=== PATIENT | female | born 2000 | race African-American/Black ===

== ENCOUNTER 2024-04-24 14:01 | Outpatient (REF) | payer SELFPAY ==
--- OUTSIDE RECORDS SUMMARY | 2024-04-24 14:23 | XMS_ITS | Clinical Summary ---
Author Organization [facility] ity Address [address] [place] [address] Care Team Providers Care Solid Waste Landfill Technician Name Role Phone Unavailable Primary Care Provider Unavailabl e Social History Tobacco Use Types Packs/Day Years Used Date Smoking Tobacco: Never Assessed Sex and Gender Information Value Date Recorded Sex Assigned at Not on file Gender Identity Not on file Sexual Orientation Not on file Plan of Treatment Health Maintenance Due Date Last Done Comments Gonorrhea/Chlamydia Screening 2002 HPV Vaccines (1 - 3-dose series) 2017 DTaP,Tdap,and Td Vaccines (1 - Tdap) 2021 Hepatitis B Vaccines (1 of 3 - 19+ 3-dose series) 2021 Annual Well Child Visit (3-2 1 years old) 02/14/2022 Depression Screening 02/14/2022 HIV Screening 02/14/2022 Hepatitis C Screening 02/14/2022 Social Influencers of Health Screening 02/14/2022 Cervical Cancer Screening: P ap Smear 2023 COVID-19 Vaccine (1 - 2023-2 5 season) 2023 Influenza Vaccine (#1) 2023 HIB Vaccines Aged Out No longer eligi ble based on patient's age to complete this topic Hepatitis A Vaccines Aged Out No long er eligible based on patient's age to complete this topic IPV Vaccines Aged Out No longer eligi ble based on patient's age to complete this topic MMR Vaccines Aged Out No longer eligi ble based on patient's age to complete this topic Meningococcal ACWY Vaccine Aged Out N o longer eligible based on patient's age to complete this topic Pneumococcal Vaccine: Pediat rics (0 to 5 Years) and At-Risk Patients (6 to 64 Years) Aged Out No longer eligible b ased on patient's age to complete this topic RSV Immunization Patients Un eulalio 20 months Aged Out No longer eligible b ased on patient's age to complete this topic Varicella Vaccines Aged Out No longer eligible based on patient's age to complete this topic
--- OUTSIDE RECORDS SUMMARY | 2024-04-24 14:23 | XMS_ITS | Continuity of Care Document ---
Author Organization [facility] Address [address] [place] [phone] Phone Care Team Providers Care Hospital Liaison Name Role Phone Walker FERTILIZER APPLICATOR, Natalie Unavailable Unavailable Allergies, Adverse Reactions, Alerts Substance Reaction Status Criticality No Known Allergies Active No Inform ation Problems Condition Type Effective Dates (start - stop) Clini carlos Status Comments No Known Problems Procedures Procedure Date PURE TONE HEARING TEST, AIR WELL EXAM MEDICAL PRACTICE ADMINISTRATOR L4 (17) Brief Emotional Behavioral Assessment Ap HEALTH RISK ASSESSMENT TEST PURE TONE URINALYSIS DIP Results Test Name Date and Time Measure Units Reference Range Abnormal Flag Status Commen ts Panel Description: UA DIP INHOUSE Final pH 6.0 Final SG 1.015 Final glucose negative Final protein negative Final bili negative Final urobili negative Final leuc negative Final nitrite negative Final blood negative Final Advance Directives Directive Yes / No Effective Date File Name No Information Encounters Encounter Description Practice Location Reason(s) For Visit Diagnoses Date Provider Providers Copied on Encounter WELL EXAM MEDICAL PRACTICE ADMINISTRATOR L4 (17[place] [facility] [place] [address] [place] [address], [address], tel:[phone] [employer] Well Child (chief complaint) Sports Physical (chief complaint) CRAFFT <1 min negative (chief complaint) PHQ 2 >1 min positive (chief complaint) Encntr for routine child health exam w/o abnormal findingsEncounter for exam of ears and hearing w/o abnormal findingsBMI pediatric, greater than or equal to 95% for ageEncounter for screening for other disorderEncounter for examination for participation in sportEncounter for examination of eyes and vision with abnormal findingsIrritabili ty and angerWorries Apr-2 8201 7 Pako Natalie. [address] [address], [id number] [address], [place], [place], [id number] , . tel:[phone] Referring Provider: Natalie Min, [address] [facility] [id number] [address], [place], [address] . tel:[phone] Family History Family Member Type Diagnosis Age At Onset No Information Immunizations Vaccine Date Status Comments varicella virus vaccine administered Sour ce: Other Registry measles, mumps and rubella v irus vaccine administered Source: Other Regist ry Hep A (ped/adol, 2 dose) administered Lucy rce: Other Registry poliovirus vaccine, inactivated administe red Source: Other Registry diphtheria, tetanus toxoids and acellular pertussis vaccine administered Source: Othe r Registry MMR administered Source: Other R egistry diphtheria, tetanus toxoids and acellular pertussis vaccine administered Source: [place] r Registry pneumococcal conjugate vacci ne, 13 valent administered Source: Other Regist ry hepatitis B vaccine, pediatr ic or pediatric/adolescent dosage administered Source: [place] r Registry Varicella administered Source: Other R egistry Hib (HbOC) administered Source: Other R egistry poliovirus vaccine, inactivated administe red Source: Other Registry diphtheria, tetanus toxoids and acellular pertussis vaccine administered Source: [place] r Registry pneumococcal conjugate vacci ne, 13 valent administered Source: Other Regist ry hepatitis B vaccine, pediatr ic or pediatric/adolescent dosage administered Source: [place] r Registry poliovirus vaccine, inactivated administe red Source: Other Registry diphtheria, tetanus toxoids and acellular pertussis vaccine administered Source: [place] r Registry pneumococcal conjugate vacci ne, 13 valent administered Source: Other Regist ry Hib (HbOC) administered Source: Other R egistry Hep B (ped/adol, 3 dose) administered Lucy rce: Other Registry Polio, Inactive administered Source: [place] r Registry DTaP (younger than 7 yrs) administered So urce: Other Registry Pneumococcal, PCV-13 administered Source: Other Registry Hib (HbOC) administered Source: Other R egistry Payers Payer name Insurance type Covered republican ID Authoriza tion(s) No Information Social History Type Description Quantity Date Captured Comments Alcohol Use Details Unknown Caffeine Use Details Unknown Tobacco Use Status Current non-smoker 17 Smoking Status Never smoker Non-Smoking Tobacco Use Details : No Details Available : No Details Available Sex Female Gender Identity Female Vital Signs Date / Time: Height Weight BMI Pulse Rate Blood Pressure Temperature Respiratory Rate Body Surface Area Head Circumference Head Circ. Percentile Wt./Rajiv. Percentile BMI percentile Pulse Ox Inhaled Ox 1:45 PM 61.00 in 77.746 kg (171.40 lbs) 32.3 9 kg/m eter (2) 74 /min 104/64 mm[Hg] 98.10 F 17 /min 98 99 % Chief Complaint And Reason For Visit From encounter dated '07/13/2016 13:42'. Well Child (chief complaint) Sports Physical (chief complaint) CRAFFT <1 min negative (chief complaint) PHQ 2 >1 min positive (chief complaint) Reason For Referral Reason For Referral No Information Plan Of Treatment Date Type Action Status Goal Tdap due Goal *Pneumo 13 (PCV13) due Goal Influenza vaccine. Due on Ap due Goal Alcohol/chemical dependency screening. Due on due Goal Vision screen . Due on due Goal Subst Abse Screen (2 [facility]) due Goal Hearing screen. Due on due Goal Folate or Fam Plan. Due on A due Goal Lifestyle education mieshain fernando diet completed History Of Present Illness Encounter Date Complaint History Of Prese nt Illness Sports Physical Well Child (comments) Patient is present today for a well child and sports physical. She will be playing softball. She has played before and is currently playing. Denies history of chest pain, or palpitations while running/exercising. She has had some shortness of breath when running due to my weight . States it only happens when she runs a long distance or over excerts self. States never happens in a normal game of softball. Denies concussion.She attends [employer] and is in the 8th grade. She will be at the highschool next year. She likes school. She is making A's, B's, and C's. She is making 1 C and is working on making it a B. She lives with father and step mom. She lives with little sister and older sister and step brother. Her cousin is living with them temporarily. Cousin smokes in house/car. She denies being on any meds or having any medical problems at this time.PHQ= positiveShe says that sometimes she feels depressed, but most of it is anger. She says that she used to be bad and her dad does not believe that she is trying to change into a better person. She says that she is sorry for all the things she has done and wants to be better. PHQ 2 >1 min positive CRAFFT <1 min negative Well Child Functional Status Date Functional Assessmen t Pain Score 0/10 Instructions Date Instruction Additional Infor jose Siobhan is doing wel l today.She is cleared to play sports. She failed her vision, but passed hearing. She needs to be seen by an eye doctor- please schedule an appointment at your earliest convenience. She was 20/40 in one eye, 20/30 in opposite eye, together both eyes are 20/30. They should be 20/20 or better. She is having some issues with feeling down and depressed. She may benefit from seeing a counselor if you are able to arrange that. Recommendation to take daily multivitamin. Recommendation to brush teeth twice daily. Your child needs to see a dentist every 6 months for regular dental cleanings. Encourage activity for at least 1 hour a day. Limit TV and chris to less than 2 hours per day. Your child needs to get appropriate rest. Encourage a diet rich in fresh fruits and vegetables, lean meats and nuts. Drink plenty of water. Avoid soda, and limit salty or sugary snacks.Always wear a seat belt while in the car and a helmet on the bike or 4-messer. Be mindful of the sun and apply sunscreen appropriately every 30 minutes - 1 hour. Recommend insect repellent (bug spray) for any potential exposure to mosquitoes. If outside for a prolonged period of time, always remember to check for ticks.Follow-up as needed. Related to Encntr for routine child health exam w/o abnormal findings Age appropriate anti cipatory guidance discussed (11-14 years) Related to Encntr for routine child health exam w/o abnormal findings Age appropriate diet discussed (11-14 years) Related to Encntr for routine child health exam w/o abnormal findings Age appropriate safe ty discussed (11-14 years) Related to Encntr for routine child health exam w/o abnormal findings Oral Health Discussed (-14 yea rs) Related to Encntr for routine child health exam w/o abnormal findings Giving encouragement to exercise Related to Body mass index (BMI) pediatric, greater than or equal to 95th percentile for age Lifestyle education regarding di et Related to Body mass index (BMI) pediatric, greater than or equal to 95th percentile for age Assessments Type Assessment Date assessment Encntr for routine child health exam w/o abnormal findings assessment Encounter for exam of ears and h earing w/o abnormal findings assessment BMI pediatric, greater than or e qual to 95% for age assessment Encounter for screening for othe r disorder assessment Encounter for examination for pa rticipation in sport assessment Encounter for examin ation of eyes and vision with abnormal findings assessment Irritability and anger 17 assessment Worries Mental Status Date Cognitive Assessment Orientation - Happy Jack ed to time, place, person, situation. Patient Care Teams Name Effective Dates (start - stop) Status Members No Information
[2024-04-24 16:39] LABS: Hematocrit 42.1 % (37.0-47.0); Hemoglobin 14.2 g/dl (12.0-16.0); Mean Corpuscular HGB Conc 33.7 g/dl (31.0-35.0); Mean Corpuscular Volume 86.1 fL (80.0-98.0); Mean Platelet Volume 9.8 fL (9.4-12.3); Platelet Count 306 X10*3/uL (160-400); Red Blood Count 4.89 X10*6/uL (4.20-5.50); Red Cell Distribution Width 12.5 % (11.0-16.0); White Blood Count 11.1 X10*3/uL (4.8-10.8)
[2024-04-24 16:57] LABS: Alanine Aminotransferase 26 U/L (0-31); Albumin Level 4.2 g/dL (3.5-5.0); Alkaline Phosphatase 60 U/L (39-117); Anion Gap 14 (12-20); Aspartate Amino Transferase 27 U/L (5-31); Bilirubin Direct 0.1 mg/dL (0.0-0.5); Bilirubin Total 0.3 mg/dL (0.0-1.0); Blood Urea Nitrogen 9 mg/dL (9-16); Calcium 9.6 mg/dL (8.4-10.2); Carbon Dioxide 25 mmol/L (22-29); Chloride 105 mmol/L (96-108); Cholesterol 205 mg/dL (<200); Estimated Glomerular Filt Rate > 60; Glucose Random 71 mg/dL (60-115); HDL Cholesterol 35 mg/dL (>40); LDL Cholesterol Calculated 142 mg/dL (<100); Potassium 3.8 mmol/L (3.3-5.1); Sodium 140 mmol/L (135-145); Total Protein 7.7 g/dL (6.5-8.0); Triglycerides 143 mg/dL (<150)
[2024-04-24 16:59] LABS: Estimated Average Glucose 97 mg/dL; Hemoglobin A1C 113.1078 umol/L; Total Hemoglobin (HGBA1C) 3653.2452 umol/L
[2024-04-24 17:14] LABS: Free T4 (Free Thyroxine) 1.11 ng/dL (0.71-1.85); Thyroid Stimulating Hormone 4.23 uIU/mL (0.32-4.0)
[2024-04-24 18:31] LABS: CT PCR NOT DETECTED (Not Detect.); NG PCR NOT DETECTED (Not Detect.)
[2024-04-25 08:31] LABS: HBS Num1 19.87 mIU/mL (0-7.99); HBc Num1 0.15 S/CO (0.00-0.79); HBsAGNum1 0.41 S/CO (0.00-0.99); HIV AB/AG Nonreactive (Nonreactive); HIV Num 1 0.06 S/CO (0.00-0.99); Hepatitis B Core Antibody Nonreactive (Nonreactive); Hepatitis B Surface Antigen Negative (Negative); ~HepC Num1 0.12 S/CO (0.00-0.79); ~Hepatitis B Surface Antibody REACTIVE (Nonreactive); ~Hepatitis C Antibody Nonreactive (Nonreactive)
[2024-04-25 08:39] LABS: Hepatitis A Antibody IgG REACTIVE (Nonreactive); ~Hepatitis A Antibody IgG 9.77 S/CO (0.00-0.99)
[2024-04-25 13:23] LABS: RPR Rapid Plasma Reagin NON-REACTIVE (NON-REACTIVE)
== END 2024-04-24 14:02 | disposition home or self-care (01) ==
LOC: HO.HHCL 14:01
PROVIDERS: Visit Provider Family Medicine
DX: R53.83 Other fatigue (principal); Z11.59 Encounter for screening for other viral diseases
CPT/HCPCS: 80048; 80061; 80076; 82306; 83036; 84439; 84443; 85027; 86592; 86704; 86706; 86708; 86803; 87340; 87389; 87491; 87591

== ENCOUNTER → 2024-05-05 08:45 | Outpatient (BNV) | payer OTHER, SELFPAY | PROVIDERS: PCP Family Medicine; Visit Provider Internal Medicine | DX: N63.31 Unspecified lump in axillary tail of the right breast (principal) | CPT/HCPCS: 76642 ==

== ENCOUNTER 2024-05-05 08:51 | Outpatient (REF) | payer OTHER, SELFPAY ==
--- NOTE | ~2024-05-05 | US_ITS ---
EXAMINATION: US DIAGNOSTIC ULTRASOUND BREAST, RIGHT CLINICAL INFORMATION: Right axillary palpable lump and painful.. COMPARISON: Comparison is made with relevant prior imaging. TECHNIQUE: Ultrasound of the breast is performed with real-time gage scale imaging and color Doppler. FINDINGS: Targeted color Doppler ultrasound scanning in the right axilla demonstrates a normal-appearing axillary lymph node. There is no other sonographic finding or abnormality. Results are discussed with the patient at time of visit. US/US breast RT limited mamm only IMPRESSION: Normal axillary lymph node. Recommend clinical evaluation and follow-up for painful lump palpable area. If symptoms change recommend clinical evaluation and a diagnostic workup can be ordered and performed to evaluate. ASSESSMENT: BI-RADS 1: Negative RECOMMENDATION: 1. Patient should be managed based on the clinical impression. Decision to proceed with biopsy should be based on clinical grounds and degree of clinical concern. 2. Otherwise, routine annual screening mammography at age 42. This patient's information was entered into a reminder system with a target due date for their next mammogram. Electronically signed by: Farzana Swartz DO 05/05/2024 10:07 AM KRISTINA
--- OUTSIDE RECORDS SUMMARY | 2024-05-05 09:18 | XMS_ITS | Encounter Summary ---
Author Organization [employer] Address [address] [facility] 7 [place] [address] Care Team Providers Care General Farmworker Name Role Phone Sonia Cornell MD Primary Care Provider [phone] Reason for Visit * Reason Onset Date Comments r/s derm appt 06/18/2022 Encounter Details Date Type Department Care Team ([facility] st Contact Info) Description 06/18/[address] [facility] MEDICINE [address] [place] [address] Sonia Cornell MD [address] [place] [address] r/s derm appt Social History Tobacco Use Types Packs/Day Years Used Date Smoking Tobacco: Never Passive Smoke Exposure: Never Smokeless Tobacco: Current Comments:Everyday Alcohol Use Standard Drinks/Week Comments Never 0 (1 standard drink = 0.6 oz pur e alcohol) Housing Stability Answer Date Recorded What is your housing situation today? I have nadine herman 01/21/[address] you li ve. Do you have problems with any of the following? None of the above 01/21/2023 Food Insecurity Answer Date Recorded Within the past 12 months, y ou worried that your food would run out before you got money to buy more: Never True 01/21/2023 Within the past 12 months,th e food you bought just didn't last and you didn't have enough money to get more: Never True 08/2022 Transportation Answer Date Recorded In the past 12 months, has l ack of transportation kept you from medical appts, meetings, work or from getting things needed for daily living? Yes, it has kept me from medical appointments or getting medications. 12/23/2022 Utilities Answer Date Recorded In the past 12 months, has t he electric, gas, oil or water company threatened to shut off services in your home? No 01/21/2023 Depression Answer Date Recorded Patient Health Questionnaire-2 Score 0 04/20/2022 Comments Unknown Sex and Gender Information Value Date Recorded Sex Assigned at Female 01/15/2022 10:39 AM EDT Legal Sex Female 10:39 AM EDT Gender Identity Female 01/15/2022 10:39 AM EDT Sexual Orientation Bisexual 01/15/2022 10 :39 AM EDT documented as of this encounter Miscellaneous Notes * Telephone Encounter - Justindiamond Yash - 06/18/2022 12:34 PM EDT Tc from pt requesting to r/s derm new appt scheduled for 06/18/22 @ 2pm with Dr. Cruz, appt has been cancelled. Please contact at [phone] documented in this encounter Plan of Treatment Upcoming Encounters Date Type Department Care Team (Late st Contact Info) Description 05/11/2024 3:30 PM EST Office Visit [facility] MEDICINE [address] [place] [address] Sonia Cornell MD [address] [place] [address] documented as of this encounter Visit Diagnoses Not on filedocumented in this encounter Care Teams General Farmworker Relationship Specialty Start Date End Date Sonia Cornell MD [address] [place] [address] PCP - General Family Medicine 11/07/21 documented as of this encounter
--- OUTSIDE RECORDS SUMMARY | 2024-05-05 09:18 | XMS_ITS | Continuity of Care Document ---
Author Organization [facility] Address [address] [place] [address] Phone Care Team Providers Care Indian Nanny Name Role Phone Walker CROP QUANTITATIVE GENETICIST, Natalie Unavailable Unavailable Allergies, Adverse Reactions, Alerts Substance Reaction Status Criticality No Known Allergies Active No Inform ation Problems Condition Type Effective Dates (start - stop) Clini carlos Status Comments No Known Problems Procedures Procedure Date PURE TONE HEARING TEST, AIR WELL EXAM SENIOR RESEARCH PROJECT MANAGER L4 (17) Brief Emotional Behavioral Assessment Ap [...] Provider Providers Copied on Encounter WELL EXAM SENIOR RESEARCH PROJECT MANAGER L4 (17) [facility], [address] [place] [address], [address], tel:[phone] [employer] Well Child (chief complaint) Sports Physical [...] angerWorries Apr-2 8201 7 Pako Natalie. [address] [address], [id number] [address], [place], [place], [id number] , . tel:[phone] Referring Provider: Natalie Min, [address] [facility] [id number] [address], [place], [address] . tel:[phone] Family History Family Member Type Diagnosis Age [...] egistry Payers Payer name Insurance type Covered green party ID Authoriza tion(s) No Information Social History [...] Date Complaint History Of Prese nt Illness Well Child CRAFFT <1 min negative PHQ 2 >1 min positive Well Child (comments) Patient is present today [...] normal game of softball. Denies concussion.She attends [employer] and is in the 8th grade. [...] has done and wants to be better. Sports Physical Functional Status Date Functional Assessmen t Pain [...] Mental Status Date Cognitive Assessment Orientation - Wayne ed to time, place, person, situation. Patient Care Teams Name Effective Dates (start - stop) Status Members No Information
--- OUTSIDE RECORDS SUMMARY | 2024-05-05 09:18 | XMS_ITS | Encounter Summary ---
Author Organization [facility] Address [address] [place] [address] 7 [place] [address] Care Team Providers Care Shorer Name Role Phone Sonia Cornell MD Primary Care Provider [phone] Encounter Details Date Type Department Care Team ([facility] Contact Info) Description 05/18/2022 Orders Only [facility] MEDICINE [address] [place] [phone] Sonia Cornell MD [address] [place] [address] Hidradenitis suppurativa (Primary Dx) Social History Tobacco Use Types Packs/Day Years Used Date Smoking Tobacco: Never Passive Smoke Exposure: Never Smokeless Tobacco: Current Comments:Everyday Alcohol Use Standard Drinks/Week Comments Never 0 (1 standard drink = 0.6 oz pur e alcohol) Depression Answer Date Recorded Patient Health Questionnaire-2 Score 0 04/20/2022 Comments Unknown Sex and Gender Information Value Date Recorded Sex Assigned at Female 01/15/2022 10:39 AM EDT Legal Sex Female 10:39 AM EDT Gender Identity Female 01/15/2022 10:39 AM EDT Sexual Orientation Bisexual 01/15/2022 10 :39 AM EDT COVID-19 Exposure Response Date Recorded In the last 10 days, have yo u been in contact with someone who was confirmed or suspected to have Coronavirus/COVID-19? Yes 05/16/2022 9:29 AM EST documented as of this encounter Plan of Treatment Upcoming Encounters Date Type Department Care Team ([facility] Contact Info) Description 05/11/2024 3:30 PM EST Office Visit [facility] [address] [place] [address] Sonia Cornell MD [address] [place] [address] documented as of this encounter Visit Diagnoses Diagnosis Hidradenitis suppurativa- Primary Hidradenitis documented in this encounter Care Teams Shorer Relationship Specialty Start Date End Date Sonia Cornell MD [address] [place] [address] PCP - General Family Medicine 11/07/21 documented as of this encounter
--- OUTSIDE RECORDS SUMMARY | 2024-05-05 09:19 | XMS_ITS | Clinical Summary ---
Author Organization [facility] it[facility] Address [address] [place] [address] Care Team Providers Care Lightout Examiner Name Role Phone Unavailable Primary Care Provider Unavailabl e Social History Tobacco Use Types Packs/Day Years Used Date Smoking Tobacco: Never Assessed Comments Unknown Sex and Gender Information Value Date Recorded Sex Assigned at Not on file Legal Sex Female 4:50 PM EST Gender Identity Not on file Sexual Orientation Not on file Plan of Treatment Health Maintenance Due Date Last Done Comments Gonorrhea/Chlamydia Screening 2002 HPV Vaccines (1 - 3-dose series) 2017 Meningococcal B Vacine (1 of 2 - Standard) 2018 DTaP,Tdap,and Td Vaccines (1 - Tdap) 2021 Hepatitis B Vaccines (1 of 3 - 19+ 3-dose series) 2021 Depression Screening 02/14/2022 HIV Screening 02/14/2022 Hepatitis C Screening 02/14/2022 Social Influencers of Health Screening 02/14/2022 Cervical Cancer Screening: P ap Smear 2023 COVID-19 Vaccine ( - 2023-2 5 season) 2023 Influenza Vaccine [...]
--- OUTSIDE RECORDS SUMMARY | 2024-05-05 09:19 | XMS_ITS | Encounter Summary ---
Author Organization [employer] Address [address] [facility] 7 [place] [address] Care Team Providers Care Platen Press Feeder Name Role Phone Sonia Cornell MD Primary Care Provider [phone] Reason for Visit * Reason Onset Date Comments Nurse Triage 04/21/2024 Encounter Details Date Type Department Care Team ([facility] st Contact Info) Description 04/21/2024 Telephone [facility] MEDICINE [address] [place], [place] [phone] Sonia Cornell MD [address] [place], [place] [phone] Nurse Triage Social History Tobacco Use Types Packs/Day Years [...] encounter Miscellaneous Notes * Telephone Encounter - Ashanti Bailon RN - 04/21/2024 9:54 AM EST called pt to triage, spoke to pt. pt states several days duration of a quarter sized red lump in her right arm pit. pt states tender to touch but denies any severe pain, drainage, fevers, spread, or other associated symptoms. given appt Saturday with red team provider at 12:00 for exam. advised home care: rest, fluids, warm compresses, cover as needed, and call back if worsening or new concerns. ptunderstands and agrees with plan. insurance verified. Protocol Used: Skin Lump or Localized Swelling (Adult) Protocol-Based Disposition: See in Office or Video Visit within 3 Days Positive Triage Question: * Patient wants to be seen * All higher-acuity triage questions were negative Care Advice Discussed: * Reasons To Call Back - You become worse * Telephone Encounter - Marina Wyatt - 04/21/2024 8:30 AM EST Symptom: Skin Lump Outcome: Schedule an urgent appointment (within 4 hours) or talk to a nurse or provider soon Reason: Red and larger than 1 inch The caller accepted this outcome. [phone] documented in this encounter Plan of Treatment Upcoming Encounters Date Type Department Care Team (Late st Contact Info) Description 05/11/2024 3:30 PM EST Office Visit [facility] MEDICINE [address] [place] [address] Sonia Cornell MD [address] [place] [address] documented as of this encounter Visit Diagnoses Not on filedocumented in this encounter Care Teams Platen Press Feeder Relationship Specialty Start Date End Date Sonia Cornell MD [address] [place] [address] PCP - General Family Medicine 11/07/21 documented as of this encounter
--- OUTSIDE RECORDS SUMMARY | 2024-05-05 09:20 | XMS_ITS | Encounter Summary ---
Author Organization [employer] Address [address] [facility] 7 [place] [address] Care Team Providers Care X Ray Operator Name Role Phone Sonia Cornell MD Primary Care Provider Reason for Visit * Reason Onset Date Comments Results 04/30/2024 Encounter Details Date Type Department Care Team ([facility] st Contact Info) Description 04/30/[address] [facility] MEDICINE [address] [place], [place] [phone] Edel Landeros DO [address] [place], [place] [phone] Results Social History Tobacco Use Types Packs/Day Years [...] encounter Miscellaneous Notes * Telephone Encounter - Jennifer Nguyen RN - 05/01/2024 10:23 AM EST TC x2 placed to patient [phone] in regards to below message. Patient verbalized understanding and did not have any further questions/concerns. Patient to f/u PRN. * Telephone Encounter - Jennifer Nguyen RN - 04/30/2024 2:10 PM EST Ordering provider reviewed BW results which returned showing an elevated TSH however a normal T4. Patients WBC also were slightly elevated however all other BW was WNL. Patient should keep appointment with PCP on 05/11/23 for further discussion regarding TSH and POC. TC placed to patient [phone] to inform of above message however patient did not answer, RN left requesting CB to red team nurses. documented in this encounter Plan of Treatment Upcoming Encounters Date Type Department Care Team (Late st Contact Info) Description 05/11/2024 3:30 PM EST Office Visit [facility] MEDICINE [address] [place] [address] Sonia Cornell MD [address] [place] [address] documented as of this encounter Visit Diagnoses Not on filedocumented in this encounter Care Teams X Ray Operator Relationship Specialty Start Date End Date Sonia Cornell MD [address] [place] [address] PCP - General Family Medicine 11/07/21 documented as of this encounter
--- OUTSIDE RECORDS SUMMARY | 2024-05-05 09:20 | XMS_ITS | Encounter Summary ---
Author Organization [employer] Address [address] [place] [address] Care Team Providers Care Zoo Caretaker Name Role Phone Sonia Cornell MD Primary Care Provider [phone] Encounter Details Date Type Department Care Team (Latest Contact Info) Description 04/24/2024 Travel Social History Tobacco Use Types Packs/Day Years [...] AM EDT documented as of this encounter Plan of Treatment Upcoming Encounters Date Type Department Care Team (Late st Contact Info) Description 05/11/2024 3:30 PM EST Office Visit [facility] [address] [place] [address] Sonia Cornell MD [address] [place] [address] documented as of this encounter Visit Diagnoses Not on filedocumented in this encounter Care Teams Zoo Caretaker Relationship Specialty Start Date End Date Sonia Cornell MD [address] [place] [id number] PCP - General Family Medicine 11/07/21 documented as of this encounter
--- OUTSIDE RECORDS SUMMARY | 2024-05-05 09:20 | XMS_ITS | Encounter Summary ---
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 Name Role Phone Sonia Cornell MD Primary Care Provider [phone] Reason for Referral * Imaging (STAT) - Authorized Specialty Diagnoses / Procedures Referred By Contac t Referred To Contact Radiology Diagnoses Axillary mass, right Procedures BI US Breast Complete Right Edel Landeros DO [address] [place] [address] Phone: tel: fax: [address] Phone: tel: fax: Referral ID Status Reason Start Date Expiration Date V isits Requested Visits Authorized [id number] Authorized 04/24/2024 04/24/2025 1 1 * Imaging (STAT) - Authorized Specialty Diagnoses / Procedures Referred By Contac t Referred To Contact Radiology Diagnoses Axillary mass, right Procedures BI Mammogram Diagnostic Tomosynthesis Bilateral Edel Landeros DO [address] [place] [address] Phone: tel: fax: [address] Phone: tel: fax: Referral ID Status Reason Start Date Expiration Date V isits Requested Visits Authorized [id number] Authorized 04/24/2024 04/24/2025 1 1 * Medications - Closed Specialty Diagnoses / Procedures Referred By Edith callaway Referred To Contact Diagnoses Neck pain Edel Landeros DO [address] [place] [address] Phone: tel: fax: Referral ID Status Reason Start Date Expiration Date Visits Re quested Visits Authorized [id number] Closed 1 1 Reason for Visit * Reason Comments sick visit Encounter Details Date Type Department Care Team ([facility] st Contact Info) Description 04/24/2024 12:00 PM EST Office Visit [facility] MEDICINE [address] [place] [phone] Edel Landeros DO [address] [place], [place] [phone] Axillary mass, right (Primary Dx); Insomnia, unspecified type; Neck pain; Fatigue, unspecified type Social History Tobacco Use Types Packs/Day Years Used Date Smoking Tobacco: Never Passive Smoke Exposure: Never Smokeless Tobacco: Current Tobacco Cessation:Ready to Q uit: Not Asked; Counseling Given: Not Answered Comments:Everyday Alcohol Use Standard Drinks/Week Comments Never [...] AM EDT documented as of this encounter Last Filed Vital Signs Vital Sign Reading Time Taken Comments Blood Pressure 144/76 04/24/2024 12:48 PM EST Pulse 65 04/24/2024 12:48 PM EST Temperature 36.6 ??C (97.9 ??F) 04/24/2024 12:[address] Respiratory Rate 20 04/24/2024 12:48 PM EST Oxygen Saturation 99% 04/24/2024 12:48 PM EST Inhaled Oxygen Concentration - - Weight 101 kg (223 lb 3.2 oz) 04/24/2024 12:48 P M EST Height 154.9 cm (5' 1 ) 04/24/2024 12:48 PM EST Body Mass Index 42.17 04/24/2024 12:48 PM EST documented in this encounter Progress Notes * Edel Landeros, - 04/24/2024 12:00 PM EST SUBJECTIVE Siobhan Diaz is a 23 y.o. female who presents for Sick Visit. She comes in c/o lump in her R armpit which started over a mos ago. She started having pain in the area last week so she told her mom about it and scheduled an appt. She says that the pain went away ~ 2 days ago. She says that the lump never came to the skin. No bleeding or discharge. She says thatshe has a h/o boils and they are usually very soft and this one is very hard. She says that it justfeels different and she is terrified that she has cancer. She has not had any fevers or chills. She reports night sweats. No weight loss. Menarche age 11. She has never been . She uses nexplanon. She has no family h/o breast or ovarian cancer that she knows of. She has multiple other concerns. She has been stressed and anxious for the last week. She doesn't follow with therapist and doesn't want a therapist. She c/o insomnia. 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 She denies any snoring. She says that her neck and upper back and chest hurt. She has been taking tylenol and ibuprofen butdoes not help. She feels weak and tired and dizzy all the time. She says that she eats once or twice when she's working and once at home. She feels that she drinks a lot of water. Breast Problem Chronicity: New Associated Symptoms: breast mass, breast pain and tenderness Associated Symptoms: no breast discharge, no breast redness, no adenopathy, no skin change and no swelling Affected side: Right Onset: More than 1 month ago Progression since onset: Partially resolved Currently : No Current control: Implant Practices self breast exam: no Risk factors: dense breasts, early menarche and obesity Risk factors: no family history of breast cancer and no family history of ovarian cancer Review of Systems Constitutional: Positive for fatigue. Negative for chills and fever. HENT: Negative for congestion. Respiratory: Negative for cough and shortness of breath. Cardiovascular: Negative for chest pain, palpitations and leg swelling. Gastrointestinal: Negative for abdominal pain, diarrhea, nausea and vomiting. Neurological: Positive for weakness. Negative for headaches. Hematological: Negative for adenopathy. Psychiatric/Behavioral: Positive for sleep disturbance. Patient Active Problem List Diagnosis Abnormal uterine bleeding Malaise Seasonal allergies Family history of endometriosis Nexplanon in place Obesity (BMI 35.0-39.9 without comorbidity) Macromastia Hidradenitis suppurativa Neck pain No Known Allergies OBJECTIVE Visit Vitals BP (!) 144/76 (BP Location: Right arm, Patient Position: Sitting, BP Cuff Size: Large adult) Pulse 65 Temp 97.9 ??F (36.6 ??C) (Temporal) Resp 20 Ht 5' 1 (1.549 m) Wt 223 lb 3.2 oz (101 kg) SpO2 99% BMI 42.17 kg/m?? Smoking Status Never BSA 2.08 m?? Physical Exam Constitutional: General: She is not in acute distress. Appearance: Normal appearance. She is obese. Cardiovascular: Rate and Rhythm: Normal rate and regular rhythm. Heart sounds: Normal heart sounds. No murmur heard. Pulmonary: Effort: Pulmonary effort is normal. Breath sounds: Normal breath sounds. No wheezing or rhonchi. Chest: Chest wall: Tenderness present. Breasts: Breasts are symmetrical. Right: Mass present. No swelling, bleeding, inverted nipple, nipple discharge, skin change or tenderness. Left: No swelling, bleeding, inverted nipple, mass, nipple discharge, skin change or tenderness. Comments: Pendulous breasts ~ 5-10mm round, firm, nontender nodule R midaxillary line 15cm from nipple Musculoskeletal: Cervical back: Neck supple. Spasms and tenderness present. No swelling, deformity, erythema or bonytenderness. Decreased range of motion. Thoracic back: Spasms and tenderness present. No swelling, deformity or bony tenderness. Decreased range of motion. Lymphadenopathy: Cervical: No cervical adenopathy. Upper Body: Right upper body: No axillary adenopathy. Left upper body: No axillary adenopathy. Neurological: General: No focal deficit present. Mental Status: She is alert and oriented to person, place, and time. Cranial Nerves: No cranial nerve deficit. Sensory: Sensation is intact. Motor: No weakness. Gait: Gait normal. Psychiatric: Attention and Perception: Attention normal. Mood and Affect: Mood is anxious and depressed. Speech: Speech normal. Behavior: Behavior normal. Thought Content: Thought content normal. Comments: tearful Assessment/Plan Diagnoses and all orders for this visit: Axillary mass, right Probable epidermal cyst -provided reassurance -referred for mammo and US for eval -reviewed breast exam with pt -advised rtc if increased pain, redness or skin change - BI Mammogram Diagnostic Tomosynthesis Bilateral; Future - BI US Breast Complete Right; Future Insomnia, unspecified type Worsening sx in setting of increased stress -provided reassurance -she declines visit with clinician -reviewed sleep hygiene -trial melatonin as needed -advised rtc if no improvement Neck pain With moderate mm spasm and grossly nml neuro exam, likely musculoskeletal -provided reassurance -trial naprosyn BID x one week then prn, alternate with tylenol as needed -trial baclofen to help with mm spasm -trial diclofenac gel -encouraged heat therapy -encouraged ROM stretching exercises -advised rtc or go to ED if sx change or worsen Fatigue, unspecified type Likely multifactorial -check basic labs -consider referral for sleep study -she declines referral to therapist -encouraged regular meals -advised stay well hydrated - T4, Free; Future - Lipid Panel, Standard; Future - TSH; Future - Vitamin D, 25-Hydroxy, Total, Immunoassay; Future - Hepatic Function Panel; Future - Hemoglobin A1c; Future - CBC; Future - Basic Metabolic Panel; Future - Hepatitis B surface antigen, EIA; Future - Chlamydia/N. Gonorrhoeae RNA, TMA, Urogenitial - HIV-1/2 Antigen and Antibodies, Fourth Generation, with Reflexes; Future - Hepatitis C Antibody with Reflex to HCV, RNA, Quantitative, Real-Time PCR; Future - RPR (Monitor) with Reflex to Titer; Future - Hepatitis B Surface Antibody, Qualitative; Future - Hepatitis A Antibody, Total; Future - Hepatitis B Core Antibody, Total; Future --Follow-up with PCP in 2-3 weeks or sooner prn-- Current Outpatient Medications: acetaminophen (Tylenol 8 Hour) 650 MG ER tablet, Take 1 tablet (650 mg) by mouth every 8 (eight) hours if needed for mild pain. Do not crush, chew, or split., Disp: 40 tablet, Rfl: 1 Azelastine-Fluticasone 137-50 MCG/ACT suspension, Administer 1 spray into affected nostril(s) every12 (twelve) hours., Disp: , Rfl: baclofen (Lioresal) 10 MG tablet, Take 1 tablet (10 mg) by mouth if needed in the morning, at noon,and at bedtime for muscle spasms., Disp: 60 tablet, Rfl: 1 Blood Pressure Monitoring (Blood Pressure Cuff) misc, 1 kit in the morning., Disp: 1 each, Rfl: 0 cetirizine (ZyrTEC) 10 MG tablet, Take 1 tablet by mouth 1 (one) time each day., Disp: , Rfl: chlorhexidine (Hibiclens) 4 % external liquid, Apply topically if needed each day for wound care (to affected area)., Disp: 473 mL, Rfl: 3 Diclofenac Sodium (Voltaren) 1 % gel, Apply 2 g topically if needed in the morning, at noon, in theevening, and at bedtime (pain)., Disp: 150 g, Rfl: 3 Flonase Sensimist 27.5 MCG/SPRAY nasal spray, USE 1 SPRAY INTO EACH NOSTRIL ONCE DAILY NOT COVERED, Disp: , Rfl: fluticasone (Flonase Sensimist) 27.5 MCG/SPRAY nasal spray, Administer 27.5 sprays into each nostril 1 (one) time each day., Disp: , Rfl: ketotifen (Zaditor) 0.025 % ophthalmic solution, PLEASE SEE ATTACHED FOR DETAILED DIRECTIONS, Disp:, Rfl: melatonin 5 MG tablet, Take 1-2 tablets (5-10 mg) by mouth if needed at bedtime (insomnia)., Disp: 60 tablet, Rfl: 1 naproxen (Naprosyn) 500 MG tablet, Take 1 tablet (500 mg) by mouth with breakfast and with evening meal. As needed for pain, Disp: 40 tablet, Rfl: 1 phentermine 15 MG capsule, Take 1 capsule (15 mg) by mouth before breakfast., Disp: 30 capsule, Rfl: 1 documented in this encounter Plan of Treatment Upcoming Encounters Date Type Department Care Team (Late st Contact Info) Description 05/11/2024 3:30 PM EST Office Visit [facility] MEDICINE [address] [place] [phone] Sonia Cornell MD [address] [place] [phone] Scheduled Orders Name Type Priority Associated Diagnoses Orde r Schedule BI Mammogram Diagnostic Tomosynthesis Bilateral Imaging STAT Axillary mass, right Expected: 04/24/2024, Expires: 06/22/2025 BI US Breast Complete Right Imaging STAT Axillary mass, right Expected: 04/24/2024, Expires: 06/22/2025 documented as of this encounter Procedures Procedure Name Priority Date/Time Associated Diagnosis Comments VITAMIN D,25-OH,TOTAL,IA Routine 04/24/2024 2:06 PM EST Fatigue, unspecified type HEPATITIS C AB W/REFL TO HCV RNA, QN, PCR Routine 04/24/2024 2:06 PM EST Fatigue, unspecified type HEPATITIS A ANTIBODY, TOTAL Routine 04/24/2024 2:06 PM EST Fatigue, unspecified type CHLAMYDIA/N. GONORRHOEAE RNA, TMA, UROGENITAL Routine 04/24/2024 2:06 PM EST Fatigue, unspecified type HEPATITIS B SURFACE ANTIGEN, EIA Routine 04/24/2024 2:06 PM EST Fatigue, unspecified type HEPATITIS B CORE AB TOTAL Routine 04/24/2024 2:06 PM EST Fatigue, unspecified type RPR (MONITOR) W/REFL TITER Routine 04/24/2024 2:06 PM EST Fatigue, unspecified type HIV 1/2 ANTIGEN/ANTIBODY, FOURTH GENERATION W/RFL Routine 04/24/2024 2:06 PM EST Fatigue, unspecified type HEPATITIS B SURFACE ANTIBODY, QUALITATIVE Routine 04/24/2024 2:06 PM EST Fatigue, unspecified type CBC Routine 04/24/2024 2:06 PM EST Fatigue, unspecified type TSH Routine 04/24/2024 2:06 PM EST Fatigue, unspecified type T4, FREE Routine 04/24/2024 2:06 PM EST Fatigue, unspecified type HEMOGLOBIN A1C Routine 04/24/2024 2:06 PM EST Fatigue, unspecified type HEPATIC FUNCTION PANEL Routine 04/24/2024 2:06 PM EST Fatigue, unspecified type LIPID PANEL, STANDARD Routine 04/24/2024 2:06 PM EST Fatigue, unspecified type BASIC METABOLIC PANEL Routine 04/24/2024 2:06 PM EST Fatigue, unspecified type documented in this encounter Results * Hepatitis B Core Antibody, Total (04/24/2024 2:06 PM EST) Hepatitis B Core Antibody Nonreactive Nonreactive [facility] Blood Venous blood specimen / Unknown 04/24/2024 2:06 PM EST 04/24/2024 4:15 PM EST Edel Landeros DO LAB BLOOD ORDERABLES Final R esult Performing Organization Address [facility] Co de Phone Number [facility] [address] [place] [phone] * Hepatitis A Antibody, Total (04/24/2024 2:06 PM EST) Pathologist [facility] Hepatitis A Antibody IgG REACTIVE Nonreactive [facility] Comment:The presence of IgG anti-HAV implies past HAV infection(recent or distant) or vaccination against HAV. Blood Venous blood specimen / Unknown 04/24/2024 2:06 PM EST 04/24/2024 4:15 PM EST Edel Landeros [employer] LAB BLOOD ORDERABLES Final R esult Performing Organization Address [facility] Co de Phone Number [facility] [address] [place] [phone] * Hepatitis B Surface Antibody, Qualitative (04/24/2024 2:06 PM EST) ~Hepatitis B Surface Antibody REACTIVE Nonreactive [facility] Comment:REACTIVE: > 11.99 mI U/mL Blood Venous blood specimen / Unknown 04/24/2024 2:06 PM EST 04/24/2024 4:15 PM EST Edel Landeros DO LAB BLOOD ORDERABLES Final R esult Performing Organization Address City/[facility]/ZIP Co de Phone Number [facility] [address] [place] [phone] * RPR (Monitor) with Reflex to??Titer (04/24/2024 2:06 PM EST) RPR (Monitor) w/Refl Titer NON-REACTI VE NON-REACT CORTES [facility] Comment:THIS TEST WAS PERFOR MED AT:[facility] [place] [phone] BURT MD Rapid Plasma Reagin Ab Titer TNP [facility] Blood Venous blood specimen / Unknown 04/24/2024 2:06 PM EST 04/24/2024 4:15 PM EST Edel Landeros LAB BLOOD ORDERABLES Final R esult Performing Organization Address City/[facility]/ZIP Co de Phone Number [facility] [address] [place] [phone] * Hepatitis C Antibody with Reflex to HCV, RNA, Quantitative, Real-Time PCR (04/24/2024 2:06 PM EST) Pathologist [facility] Hepatitis C Antibody Nonreactive Nonreactive [facility] Comment:Antibodies to HCV no t detected; does not exclude early acuteHCV infection. Blood Venous blood specimen / Unknown 04/24/2024 2:06 PM EST 04/24/2024 4:15 PM EST Edel Landeros LAB BLOOD ORDERABLES Final R esult Performing Organization Address City/[facility]/ZIP Co de Phone Number [facility] [address] [place] [phone] * HIV-1/2 Antigen and Antibodies, Fourth Generation, with Reflexes (04/24/2024 2:06 PM EST) HIV AB/AG Nonreactive Nonreactive [facility] Comment:HIV-1 p24 Ag and/or HIV-1/HIV-2 Ab not detected.A test result that is nonreactive does not exclude thepossibility of exposure to or infection with HIV-1 and/orHIV-2. Nonreactive results in this assay for individualswith prior exposure to HIV-1 and/or HIV-2 may be due toantigen and antibody levels that are below the limit ofdetection of this assay.The Linkedwith[employer]ila[employer]u HIV Ag/Ab Combo assay result andsupplemental assay results should be interpreted inconjunction with the patient's clinical presentation,history and other laboratory results. If the results areinconsistent with clinical evidence, additional testing issuggested to confirm the result. Blood Venous blood specimen / Unknown 04/24/2024 2:06 PM EST 04/24/2024 4:15 PM EST us Edel Landeros DO LAB BLOOD ORDERABLES Final R esult [facility] [address] [place] [phone] * Chlamydia/N. Gonorrhoeae RNA, TMA, Urogenitial (04/24/2024 2:06 PM EST) Pathologist [facility] CT PCR NOT DETECTED Not Detect. [facility] Comment:A not detected test result does not exclude the possibilityof infection because test results can be affected byimproper specimen collection, concurrent antibiotic therapy,or the number of organisms in the specimen which may bebelow the sensitivity of the test. As with many diagnostictests, results from the Xpert CT/NG assay should beinterpreted in conjunction with other laboratory andclinical data available to the clinician.Xpert CT/NG performance has not been evaluated in patientsless than 14 years of age. The assay should not be used forthe evaluationof suspected sexual abuse or for other medico-legalindications. Additional testing is recommended in anycircumstance when false positive or false negative resultscould lead to adverse medical, social or psychologicalconsequences. NG PCR NOT DETECTED Not Detect. [facility] Comment:A not detected test result does not exclude the possibilityof infection because test results can be affected byimproper specimen collection, concurrent antibiotic therapy,or the number of organisms in the specimen which may bebelow the sensitivity of the test. As with many diagnostictests, results from the Xpert CT/NG assay should beinterpreted in conjunction with other laboratory andclinical data available to the clinician.Xpert CT/NG performance has not been evaluated in patientsless than 14 years of age. The assay should not be used forthe evaluationof suspected sexual abuse or for other medico-legalindications. Additional testing is recommended in anycircumstance when false positive or false negative resultscould lead to adverse medical, social or psychologicalconsequences. Urine Urethral structure / Unknown 04/24/2024 2:06 PM EST 04/24/2024 4:10 PM EST Narrative [facility] - 04/24/2024 6:32 PM EST Urine Edel Landeros DO LAB MICROBIOLOGY - GENERAL O RDERABLES Final Result Performing Organization Address [facility]/ZIP Co de Phone Number [facility] [address] [place] [phone] * Hepatitis B surface antigen, EIA (04/24/2024 2:06 PM EST) Pathologist [facility] Hepatitis B Surface Ag Negative Negative [facility] Blood Venous blood specimen / Unknown 04/24/2024 2:06 PM EST 04/24/2024 4:15 PM EST Edel Landeros DO LAB BLOOD ORDERABLES Final R esult Performing Organization Address [facility]/ZIP Co de Phone Number [facility] [address] [place] [phone] * Basic Metabolic Panel (04/24/2024 2:06 PM EST) Pathologist [facility] Sodium 140 135 - 145 mmol/L [facility] Potassium 3.8 3.3 - 5.1 mmol/L [facility] Chloride 105 96 - 108 mmol/L [facility] Carbon Dioxide 25 22 - 29 mmol/L [facility] Anion Gap 14 12 - 20 [facility] Urea Nitrogen (BUN) 9 9 - 16 mg/dL [facility] Creatinine, Serum 0.67 0.5 - 1.4 mg/dL [facility] Estimated Glomerular Filt Rate >60 [facility] Comment:Chronic Kidney Disea se: Estimated GFR < 60 mL/min/1.09w3Hgyiae Kidney Disease: Estimated GFR < 15 mL/min/1.73m2 Glucose 71 60 - 115 mg/dL [facility] Calcium 9.6 8.4 - 10.2 mg/dL [facility] Blood Venous blood specimen / Unknown 04/24/2024 2:06 PM EST 04/24/2024 4:15 PM EST us Edel Landeros DO LAB BLOOD ORDERABLES Final R esult [facility] [address] [place] [phone] * (ABNORMAL) CBC (04/24/2024 2:06 PM EST) White Blood Count 11.1(H) 4.8 - 10.8 X10*3/uL [facility] Red Blood Count 4.89 4.20 - 5.50 X10*6/uL [facility] Hemoglobin 14.2 12.0 - 16.0 g/dl [facility] Hematocrit 42.1 37.0 - 47.0 % [facility] Mean Corpuscular Volume 86.1 80.0 - 98.0 fL [facility] Mean Corpuscular Hemoglobin 29.0 27.0 - 33.0 pg [facility] Mean Corpuscular HGB Conc 33.7 31.0 - 35.0 g/dl [facility] Red Cell Distribution Width 12.5 11.0 - 16.0 % [facility] Platelet Count 306 160 - 400 X10*3/uL [facility] Mean Platelet Volume 9.8 9.4 - 12.3 fL [facility] NRBC Pct Auto 0.0 0.0 - 0.2 /100WBC [facility] NRBC Abs Auto 0.000 0.0 - 0.012 X10*3/uL [facility] Blood Venous blood specimen / Unknown 04/24/2024 2:06 PM EST 04/24/2024 4:15 PM EST Edel Leti LAB BLOOD ORDERABLES Final R esult Performing Organization Address City/[facility] Co de Phone Number [facility] [address] [place] [phone] * Hemoglobin A1c (04/24/2024 2:06 PM EST) Hemoglobin A1c 5.0 <6.0 % [facility] Comment:Hemoglobin A1C Refer ence Range Adults: 4.8 - 6.0 % Non diabetic: < 6.0 % Goal: < 7.0 %Additional Action Suggested: > 8.0 %Note: Hemoglobin A1c results are invalid for patients with abnormal amounts of HbF. Blood transfusions may impact the HbA1c concentration in the patient sample. Estimated Average Glucose 97 mg/dL [facility] Comment:eAG = Estimated ave rage glucose which is %A1C expressed asaverage glucose, using the formula of the [id number] Glucose study (ADAG), Diabetes Care, Vol.31,#8,Oct. 2007 Blood Venous blood specimen / Unknown 04/24/2024 2:06 PM EST 04/24/2024 4:15 PM EST Edel Landeros DO LAB BLOOD ORDERABLES Final R esult Performing Organization Address [facility]/ZIP Co de Phone Number [facility] [address] [place] [address] [phone] * Hepatic Function Panel (04/24/2024 2:06 PM EST) Bilirubin, Total 0.3 0.0 - 1.0 mg/dL [facility] Bilirubin, Direct 0.1 0.0 - 0.5 mg/dL [facility] Aspartate Amino Transferase 27 5 - 31 U/L [facility] Alanine Aminotransferase 26 0 - 31 U/L [facility] Total Protein 7.7 6.5 - 8.0 g/dL [facility] Albumin Level 4.2 3.5 - 5.0 g/dL [facility] Alkaline Phosphatase 60 39 - 117 U/L [facility] Blood Venous blood specimen / Unknown 04/24/2024 2:06 PM EST 04/24/2024 4:15 PM EST Edel Landeros LAB BLOOD ORDERABLES Final R esult Performing Organization Address [facility] Co de Phone Number [facility] [address] [place] [address] [phone] * Vitamin D, 25-Hydroxy, Total, Immunoassay (04/24/2024 2:06 PM EST) Vitamin D 25-OH Total 34.0 >30 ng/mL [facility] Comment:Health Based Referen ce Values*< 20 ng/mL [id number] ng/mL Insufficient> 30 ng/mL Sufficient*Niecy KURTZ. N Engl J Med. 2007;[id number]:266-280Care must be taken in interpreting Vitamin D results fromdifferent laboratories and methodologies. Published datademonstrated that results from patients undergoinghemodialysis may show a negative bias when tested withvarious automated 25-OH vitamin D assays when compared toLC-MS/MS.When testing samples from patients whose predominant form ofVitamin D is Vitamin D2, such as patients receiving VitaminD2 supplementation, results that are subtherapeutic shouldbe confirmed with another method such as LC-MS/MS. Blood Venous blood specimen / Unknown 04/24/2024 2:06 PM EST 04/24/2024 4:15 PM EST Edel Landeros LAB BLOOD ORDERABLES Final R esult Performing Organization Address City/[facility]/ZIP Co de Phone Number [facility] [address] [place] [phone] * (ABNORMAL) TSH (04/24/2024 2:06 PM EST) Thyroid Stimulating Hormone 4.23(H) 0.32 - 4.0 uIU/mL [facility] Comment:Note: A sustained TS H level above 2.5 uIU/mL may warrant further investigation. TSH 3rd Generation ([facility]) Blood Venous blood specimen / Unknown 04/24/2024 2:06 PM EST 04/24/2024 4:15 PM EST us Edel Landeros DO LAB BLOOD ORDERABLES Final R esult [facility] [address] [place] [address] [phone] * (ABNORMAL) Lipid Panel, Standard (04/24/2024 2:06 PM EST) Triglycerides 143 <150 mg/dL [facility] Comment:Desirable Triglyceri de: less than 150 mg/dLBorderline High Triglyceride 150-199 mg/dLHigh Triglyceride: 200-499 mg/dLVery High Triglyceride: greater than or equal to 5OO mg/dL Cholesterol 205(H) <200 mg/dL [facility] Comment:Desirable Cholestero l: less than 200 mg/dLBorderline High Cholesterol: 200-239 mg/dLHigh Cholesterol: greater than 239 mg/dL LDL Cholesterol Calculated 142(H) <100 mg/dL [facility] Comment:Desirable LDL: less than 100 mg/dLNear Optimal/Above Optimal LDL: 110- 129 mg/dLBorderline High LDL: 130-159 mg/dLHigh LDL: 160-189 mg/dLVery High LDL: greater than or equal to 190 mg/dL HDL Cholesterol 35(L) >40 mg/dL [facility] Comment:Desirable HDL: great er than 40 mg/dL Note: This HDL assay may give artificially low results in patients with liver disease. Blood Venous blood specimen / Unknown 04/24/2024 2:06 PM EST 04/24/2024 4:15 PM EST us Edel Leti DO LAB BLOOD ORDERABLES Final R esult Performing Organization Address [facility]/ZIP Co de Phone Number [facility] [address] [place] [address] [phone] * T4, Free (04/24/2024 2:06 PM EST) Free T4 (Free Thyroxine) 1.11 0.71 - 1.85 ng/dL [facility] Blood Venous blood specimen / Unknown 04/24/2024 2:06 PM EST 04/24/2024 4:15 PM EST Edel Leti LAB BLOOD ORDERABLES Final R esult Performing Organization Address [facility] Co de Phone Number [facility] [address] [place] [address] [phone] documented in this encounter Visit Diagnoses Diagnosis Axillary mass, right- Primary Insomnia, unspecified type Neck pain Cervicalgia Fatigue, unspecified type documented in this encounter Care Teams Juice Mixer Relationship Specialty Start Date End Date Sonia Cornell MD [address] [place] [phone] PCP - General Family Medicine 11/07/21 documented as of this encounter
--- OUTSIDE RECORDS SUMMARY | 2024-05-05 09:20 | XMS_ITS | Clinical Summary ---
Author Organization [employer] Address [address] [place] [address] [address] [place] [address] Care Team Providers Care Extracorporeal Technician Name Role Phone Sonia Cornell MD Primary Care Provider [phone] Allergies No known active allergies Medications Azelastine-Flu ticasone 137-50 MCG/ACT suspension Administer 1 spray into affected nostril(s) every 12 (twelve) hours. 07/11/19 22 Active cetirizine (ZyrTEC) 10 MG tablet Take 1 tablet by mouth 1 (one) time each day. 07/11/19 22 Active fluticasone (Flonase Sensimist) 27.5 MCG/SPRAY nasal spray Administer 27.5 sprays into each nostril 1 (one) time each day. 07/11/19 22 Active ketotifen (Zaditor) 0.025 % ophthalmic solution PLEASE SEE ATTACHED FOR DETAILED DIRECTIONS 07/11/19 22 Active Flonase Sensimist 27.5 MCG/SPRAY nasal spray USE 1 SPRAY INTO EACH NOSTRIL ONCE DAILY NOT COVERED 07/11/19 22 Active Blood Pressure Monitoring (Blood Pressure Cuff) miscIndication s:Elevated blood pressure reading 1 kit in the morning. 1 each 04/20/19 23 Active chlorhexidine (Hibiclens) 4 % external liquidIndicati ons:Hidradenit is suppurativa Apply topically if needed each day for wound care (to affected area). 473 mL 3 04/20/19 23 Active phentermine 15 MG capsuleIndicat ions:Obesity (BMI 35.0-39.9 without comorbidity) Take 1 capsule (15 mg) by mouth before breakfast. 30 capsule 1 10/27/19 23 Active Diclofenac Sodium (Voltaren) 1 % gelIndications :Neck pain Apply 2 g topically if needed in the morning, at noon, in the evening, and at bedtime (pain). 150 g 3 04/24/19 25 Active baclofen (Lioresal) 10 MG tablet Take 1 tablet (10 mg) by mouth if needed in the morning, at noon, and at bedtime for muscle spasms. 60 tablet 1 04/24/19 25 Active naproxen (Naprosyn) 500 MG tablet Take 1 tablet (500 mg) by mouth with breakfast and with evening meal. As needed for pain 40 tablet 1 04/24/19 25 Active acetaminophen (Tylenol 8 Hour) 650 MG ER tablet Take 1 tablet (650 mg) by mouth every 8 (eight) hours if needed for mild pain. Do not crush, chew, or split. 40 tablet 1 04/24/19 25 2024 Active melatonin 5 MG tablet Take 1-2 tablets (5-10 mg) by mouth if needed at bedtime (insomnia). 60 tablet 1 04/24/19 25 Active baclofen (Lioresal) 10 MG tablet Take 1 tablet by mouth in the morning and 1 tablet in the evening. 08/30/19 22 2024 Discontinued(R eorder (will not trigger notification to Pharmacy)) Diclofenac Sodium (Voltaren) 1 % gel Apply 2 g topically every 6 (six) hours. 04/04/19 22 2024 Discontinued(R eorder (will not trigger notification to Pharmacy)) ibuprofen 600 MG tablet Take 600 mg by mouth in the morning, at noon, and at bedtime. 04/04/19 22 2024 Discontinued naproxen (Naprosyn) 500 MG tablet Take 1 tablet by mouth in the morning and 1 tablet in the evening. 08/30/19 22 2024 Discontinued(R eorder (will not trigger notification to Pharmacy)) Nirmatrelvir&R itonavir 300/100 (Paxlovid) 20 x 150 MG & 10 x 100MG tablet therapy pack TAKE 2 TABLETS (300 MG) OF NIRMATRELVIR & 1 TABLET (100 MG) OF RITONAVIR BY MOUTH TWICE DAILY FOR 5 DAYS 11/04/19 22 2024 Discontinued(T herapy completed) Active Problems Problem Noted Date Diagnosed Date Neck pain 10/29/2022 Family history of endometriosis 04/20/2022 Overview (04/20/2022): Dx in her mother Nexplanon in place 04/20/2022 Assessment & Plan (04/20/2022 1:16 PM EST): Inserted 03/2021 Obesity (BMI 35.0-39.9 without comorbidity) 05/2022 Assessment & Plan (10/29/2022 7:57 AM EDT): Discussed weight loss options Would like medication trial along with decreased portion size and increasing quality of food that she is eating Phentermine 15mg with breakfast BMI <33 for breast reduction surgery Assessment & Plan (04/20/2022 1:15 PM EST): Discussed weight loss needs BMI <33 for breast reduction surgery Macromastia 04/20/2022 Assessment & Plan (04/20/2022 1:19 PM EST): Discussed need for weight loss, PT prior to referral to plastics Hidradenitis suppurativa 04/20/2022 Assessment & Plan (10/29/2022 8:02 AM EDT): chlorhexadine doxcycline 100mg daily x 3 months Some improvement in her symptoms, but she is still interested in better control of her condition She will book derm appt today Assessment & Plan (04/20/2022 1:15 PM EST): chlorhexadine doxcycline 100mg daily x 3 months F/u afterwards, consider derm referral for biologics Abnormal uterine bleeding 02/20/2022 Assessment & Plan (10/29/2022 7:56 AM EDT): Secondary to Nexplanon Has tried NSAIDS in the past Declines OCP or transxemic acid trial for now Assessment & Plan (04/20/2022 1:16 PM EST): Will schedule gynn appt for workup Nexplanon helps with menstrual sx Malaise 02/20/2022 Seasonal allergies 01/25/2021 Encounters Date Type Department Care Team Description 04/30/2024 Telephone [facility] [address] [place] [address] Edel Landeros DO Results 04/24/2024 12:00 PM EST Office Visit [facility] [address] [place] [address] Edel Landeros DO Axillary mass, right (Primary Dx); Insomnia, unspecified type; Neck pain; Fatigue, unspecified type 04/24/2024 Travel 04/21/2024 Telephone [facility] [address] [place] [address] Sonia Cornell MD Nurse Triage from Last 3 Months Immunizations Name Administration Dates Next Due Influenza injectable quadrivalent preservative f ree 01/25/2021 Family History Medical History Relation Name Comments Hypertension Father DM2 Maternal Grandmother Relation Name Status Comments Father Maternal Grandmother Social History Tobacco Use Types Packs/Day Years Used Date Smoking Tobacco: Never Passive Smoke Exposure: Never Smokeless Tobacco: Current Tobacco Cessation:Ready to Q uit: Not Asked; Counseling Given: Not Answered Comments:Everyday Alcohol Use Standard Drinks/Week Comments Never 0 (1 standard drink = 0.6 oz pur e alcohol) Housing Stability Answer Date Recorded What is your housing situation today? I have nadinebibiana herman 01/21/[address] you [...] Orientation Bisexual 01/15/2022 10 :39 AM EDT Last Filed Vital Signs Vital Sign Reading [...] Mass Index 42.17 04/24/2024 12:48 PM EST Plan of Treatment Upcoming Encounters Date Type Department Care Team (Late st Contact Info) Description 05/11/2024 3:30 PM EST Office Visit [facility] [address] [place] [phone] Sonia Cornell MD [address] [place] [address] Health Maintenance Due Date Last Done Comments Alcohol/Substance Use Screening 2014 Family Planning (PISQ) 2017 HPV Vaccines (1 - 3-dose series) 2017 DTaP/Tdap/Td Vaccines (1 - Tdap) 2021 Hepatitis B Vaccines (1 of 3 - 19+ 3-dose series) 2021 Depression Screening 04/20/2023 04/20/2022, 04/20/2022 SDOH Screening 04/20/2023 04/20/2022 Pap Smear 2023 COVID-19 Vaccine (1 - 2023-2 5 season) 2023 Influenza Vaccine (#1) 2023 01/25/2021 Chlamydia and Gonorrhea Screening 04/24/2025 04/24/2024, 05/14/2022, 01/09/2021 Tobacco Screening 04/24/2025 04/24/2024 Lipid Panel 04/24/2029 04/24/2024, 05/14/2022 Zoster Vaccines (1 of 2) 2052 RSV Patients and Patients Aged 60 years or older (1 - 1-dose 75+ series) 2077 HIV Screening Completed 04/24/2024, 05/14/2022 Hepatitis C Screening Completed 04/24/2024 , 05/14/2022 HIB Vaccines Aged Out No longer eligi ble based on patient's age to complete this topic Hepatitis A Vaccines Aged Out No long er eligible based on patient's age to complete this topic IPV Vaccines Aged Out No longer eligi ble based on patient's age to complete this topic Meningococcal Vaccine Aged Out No latonia jonnie eligible based on patient's age to complete this topic Pneumococcal Vaccine: Pediatrics (0 to 5 Years) and At-Risk Patients (6 to 49) Years) Aged Out No longer eligible b ased on patient's age to complete this topic RSV under 20 months Aged Out No longe r eligible based on patient's age to complete this topic Rotavirus Vaccines Aged Out No longer eligible based on patient's age to complete this topic Procedures Procedure Name Priority Date/Time Associated Diagnosis Comments HEPATITIS B CORE AB TOTAL Routine 04/24/2024 [...] 04/24/2024 2:06 PM EST Fatigue, unspecified type VITAMIN D,25-OH,TOTAL,IA Routine 04/24/2024 2:06 PM EST Fatigue, unspecified type TSH Routine 04/24/2024 2:06 PM EST Fatigue, unspecified type LIPID PANEL, STANDARD Routine 04/24/2024 2:06 PM EST Fatigue, unspecified type T4, FREE Routine 04/24/2024 2:06 PM EST Fatigue, unspecified type CHLAMYDIA/N. GONORRHOEAE RNA, TMA, UROGENITAL Routine 04/24/2024 2:06 PM EST Fatigue, unspecified type from Last 3 Months Results * Vitamin D, 25-Hydroxy, Total, Immunoassay (04/24/2024 2:06 PM EST) Vitamin D 25-OH Total 34.0 >30 ng/mL [facility] Comment:Health Based Referen ce Values*< 20 ng/mL [id number] ng/mL Insufficient> 30 ng/mL Sufficient*Niecy KURTZ. N [...] ORDERABLES Final R esult Performing Organization Address [facility] Co de Phone Number [facility] [address] [place] [phone] * Hepatitis C Antibody with Reflex to HCV, RNA, Quantitative, Real-Time PCR (04/24/2024 2:06 PM EST) Hepatitis C Antibody Nonreactive Nonreactive [facility] Comment:Antibodies to HCV no t detected; does not exclude early acuteHCV infection. Blood Venous blood specimen / Unknown 04/24/2024 2:06 PM EST 04/24/2024 4:15 PM EST Edel Landeros DO LAB BLOOD ORDERABLES Final R esult Performing Organization Address [facility] Co de Phone Number [facility] [address] [place] [address] [phone] * Hepatitis A Antibody, Total (04/24/2024 2:06 PM EST) Hepatitis A Antibody IgG REACTIVE Nonreactive [facility] Comment:The presence of IgG anti-HAV implies past HAV infection(recent or distant) or vaccination against HAV. Blood Venous blood specimen / Unknown 04/24/2024 2:06 PM EST 04/24/2024 4:15 PM EST Edel Canelaferchoanthony DO LAB BLOOD ORDERABLES Final R esult [facility] [address] [place] [phone] * Chlamydia/N. Gonorrhoeae RNA, TMA, Urogenitial (04/24/2024 2:06 PM EST) CT PCR NOT DETECTED Not Detect. [facility] Comment:A not detected test result does [...] psychologicalconsequences. NG PCR NOT DETECTED Not Detect. [facility] Comment:A not detected test result does [...] PM EST 04/24/2024 4:10 PM EST Narrative [facility] - 04/24/2024 6:32 PM EST Urine Edel Landeros DO LAB MICROBIOLOGY - GENERAL O RDERABLES Final Result Performing Organization Address [facility] Co de Phone Number [facility] [address] [place] [phone] * Hepatitis B surface antigen, EIA (04/24/2024 2:06 PM EST) Hepatitis B Surface Ag Negative Negative [facility] Blood Venous blood specimen / Unknown 04/24/2024 2:06 PM EST 04/24/2024 4:15 PM EST Edel Landeros DO LAB BLOOD ORDERABLES Final R esult Performing Organization Address [facility] Co de Phone Number [facility] [address] [place] [address] [phone] * Hepatitis B Core Antibody, Total (04/24/2024 2:06 PM EST) Hepatitis B Core Antibody Nonreactive Nonreactive [facility] Blood Venous blood specimen / Unknown 04/24/2024 2:06 PM EST 04/24/2024 4:15 PM EST Edel Landeros DO LAB BLOOD ORDERABLES Final R esult Performing Organization Address [facility] Co de Phone Number [facility] [address] [place] [address] [phone] * RPR (Monitor) with Reflex to??Titer (04/24/2024 2:06 PM EST) RPR (Monitor) w/Refl Titer NON-REACTI VE NON-REACT CORTES [facility] Comment:THIS TEST WAS PERFOR MED AT:[employer] [place] [phone] BURT MD Rapid Plasma Reagin Ab Titer TNP [facility] Blood Venous blood specimen / Unknown 04/24/2024 2:06 PM EST 04/24/2024 4:15 PM EST Edel Landeros [facility] LAB BLOOD ORDERABLES Final R esult Performing Organization Address City/[facility]/ZIP Co de Phone Number [facility] [address] [place] [phone] * HIV-1/2 Antigen and Antibodies, Fourth Generation, with Reflexes (04/24/2024 2:06 PM EST) HIV AB/AG Nonreactive Nonreactive [facility] Comment:HIV-1 p24 Ag and/or HIV-1/HIV-2 Ab not detected.A test result that is nonreactive does not exclude thepossibility of exposure to or infection with HIV-1 and/orHIV-2. Nonreactive results in this assay for individualswith prior exposure to HIV-1 and/or HIV-2 may be due toantigen and antibody levels that are below the limit ofdetection of this assay.The [employer] [facility] HIV Ag/Ab Combo assay result andsupplemental assay results should be interpreted inconjunction with the patient's clinical presentation,history and other laboratory results. If the results areinconsistent with clinical evidence, additional testing issuggested to confirm the result. Blood Venous blood specimen / Unknown 04/24/2024 2:06 PM EST 04/24/2024 4:15 PM EST Edel Leti [facility] LAB BLOOD ORDERABLES Final R esult Performing Organization Address City/[facility]/ZIP Co de Phone Number [facility] [address] [place] [phone] * Hepatitis B Surface Antibody, Qualitative (04/24/2024 2:06 PM EST) ~Hepatitis B Surface Antibody REACTIVE Nonreactive [facility] Comment:REACTIVE: > 11.99 mI U/mL Blood Venous blood specimen / Unknown 04/24/2024 2:06 PM EST 04/24/2024 4:15 PM EST Edel Landeros DO LAB BLOOD ORDERABLES Final R esult Performing Organization Address City/[facility]/ZIP Co de Phone Number [facility] [address] [place] [address] [phone] * (ABNORMAL) CBC (04/24/2024 2:06 PM EST) White Blood Count 11.1(H) 4.8 - 10.8 X10*3/uL [facility] Red Blood Count 4.89 4.20 - 5.50 X10*6/uL [facility] Hemoglobin 14.2 12.0 - 16.0 g/dl [facility] Hematocrit 42.1 37.0 - 47.0 % [facility] Mean Corpuscular Volume 86.1 80.0 - 98.0 fL [facility] Mean Corpuscular Hemoglobin 29.0 27.0 - 33.0 pg [facility] Mean Corpuscular HGB Conc 33.7 31.0 - 35.0 g/dl [facility] Red Cell Distribution Width 12.5 11.0 - 16.0 % [facility] Platelet Count 306 160 - 400 X10*3/uL [facility] Mean Platelet Volume 9.8 9.4 - 12.3 fL [facility] NRBC Pct Auto 0.0 0.0 - 0.2 /100WBC [facility] NRBC Abs Auto 0.000 0.0 - 0.012 X10*3/uL [facility] Blood Venous blood specimen / Unknown 04/24/2024 2:06 PM EST 04/24/2024 4:15 PM EST Edel Landeros DO LAB BLOOD ORDERABLES Final R esult [facility] [address] [place] [address] [phone] * (ABNORMAL) TSH (04/24/2024 2:06 PM EST) Thyroid Stimulating Hormone 4.23(H) 0.32 - 4.0 uIU/mL [facility] Comment:Note: A sustained TS H level above 2.5 uIU/mL may warrant further investigation. TSH 3rd Generation ([facility]) Blood Venous blood specimen / Unknown 04/24/2024 2:06 PM EST 04/24/2024 4:15 PM EST Edel Leti LAB BLOOD ORDERABLES Final R esult Performing Organization Address City/[facility]/ZIP Co de Phone Number [facility] [address] [place] [address] [phone] * T4, Free (04/24/2024 2:06 PM EST) Free T4 (Free Thyroxine) 1.11 0.71 - 1.85 ng/dL [facility] Blood Venous blood specimen / Unknown 04/24/2024 2:06 PM EST 04/24/2024 4:15 PM EST [facility] BLOOD ORDERABLES Final R esult Performing Organization Address City/[facility]/ZIP Co de Phone Number [facility] [address] [place] [phone] * Hemoglobin A1c (04/24/2024 2:06 PM EST) Hemoglobin A1c 5.0 <6.0 % [facility] Comment:Hemoglobin A1C Refer ence Range Adults: 4.8 - 6.0 % Non diabetic: < 6.0 % Goal: < 7.0 %Additional Action Suggested: > 8.0 %Note: Hemoglobin A1c results are invalid for patients with abnormal amounts of HbF. Blood transfusions may impact the HbA1c concentration in the patient sample. Estimated Average Glucose 97 mg/dL [facility] Comment:eAG = Estimated ave rage glucose which is %A1C expressed asaverage glucose, using the formula of the Q6C-WwhcbhtWrtmpdd Glucose study (ADAG), Diabetes Care, Vol.31,#8,2007 Blood Venous blood specimen / Unknown 04/24/2024 2:06 PM EST 04/24/2024 4:15 PM EST Edel Leti DO LAB BLOOD ORDERABLES Final R esult Performing Organization Address City/[facility]/ZIP Co de Phone Number [facility] [address] [place] [phone] * Hepatic Function Panel (04/24/2024 2:06 PM EST) Bilirubin, Total 0.3 0.0 - 1.0 mg/dL [facility] Bilirubin, Direct 0.1 0.0 - 0.5 mg/dL [facility] Aspartate Amino Transferase 27 5 - 31 U/L [facility] Alanine Aminotransferase 26 0 - 31 U/L [facility] Total Protein 7.7 6.5 - 8.0 g/dL [facility] Albumin Level 4.2 3.5 - 5.0 g/dL [facility] Alkaline Phosphatase 60 39 - 117 U/L [facility] Blood Venous blood specimen / Unknown 04/24/2024 2:06 PM EST 04/24/2024 4:15 PM EST Edel Leti DO LAB BLOOD ORDERABLES Final R esult Performing Organization Address City/[facility]/ZIP Co de Phone Number [facility] [address] [place] [phone] * (ABNORMAL) Lipid Panel, Standard (04/24/2024 2:06 PM EST) Triglycerides 143 <150 mg/dL [facility] Comment:Desirable Triglyceri de: less than 150 mg/dLBorderline High Triglyceride 150-199 mg/dLHigh Triglyceride: 200-499 mg/dLVery High Triglyceride: greater than or equal to 5OO mg/dL Cholesterol 205(H) <200 mg/dL [facility] Comment:Desirable Cholestero l: less than 200 mg/dLBorderline High Cholesterol: 200-239 mg/dLHigh Cholesterol: greater than 239 mg/dL LDL Cholesterol Calculated 142(H) <100 mg/dL [facility] Comment:Desirable LDL: less than 100 mg/dLNear Optimal/Above Optimal LDL: 110- 129 mg/dLBorderline High LDL: 130-159 mg/dLHigh LDL: 160-189 mg/dLVery High LDL: greater than or equal to 190 mg/dL HDL Cholesterol 35(L) >40 mg/dL [facility] Comment:Desirable HDL: great er than 40 mg/dL Note: This HDL assay may give artificially low results in patients with liver disease. Blood Venous blood specimen / Unknown 04/24/2024 2:06 PM EST 04/24/2024 4:15 PM EST us Edel Landeros DO LAB BLOOD ORDERABLES Final R esult [facility] [address] [place] [phone] * Basic Metabolic Panel (04/24/2024 2:06 PM EST) Sodium 140 135 - 145 mmol/L [facility] Potassium 3.8 3.3 - 5.1 mmol/L [facility] Chloride 105 96 - 108 mmol/L [facility] Carbon Dioxide 25 22 - 29 mmol/L [facility] Anion Gap 14 12 - 20 [facility] Urea Nitrogen (BUN) 9 9 - 16 mg/dL [facility] Creatinine, Serum 0.67 0.5 - 1.4 mg/dL [facility] Estimated Glomerular Filt Rate >60 [facility] Comment:Chronic Kidney Disea se: Estimated GFR < 60 mL/min/1.08o7Obsfya Kidney Disease: Estimated GFR < 15 mL/min/1.73m2 Glucose 71 60 - 115 mg/dL [facility] Calcium 9.6 8.4 - 10.2 mg/dL [facility] Blood Venous blood specimen / Unknown 04/24/2024 2:06 PM EST 04/24/2024 4:15 PM EST us Edel Landeros DO LAB BLOOD ORDERABLES Final R esult [facility] [address] [place] [phone] from Last 3 Months Insurance [employer] Care Teams Extracorporeal Technician Relationship Specialty Start Date End Date Sonia Cornell MD [address] [place] [phone] PCP - General Family Medicine 11/07/21
== END 2024-05-05 08:52 | disposition home or self-care (01) ==
LOC: HO.MAMMO 08:51
PROVIDERS: PCP Family Medicine; Visit Provider Family Medicine
DX: R22.31 Localized swelling, mass and lump, right upper limb (principal)
CPT/HCPCS: 76642